=== PATIENT | male | born 1985 | race Caucasian/White ===

== ENCOUNTER 2023-03-25 21:08 | Outpatient (CLI) | payer OTHER, SELFPAY ==
[2023-03-25 18:14] LABS: Amphetamine/Metha Screen,Urine Negative ng/ml (<1000)
[2023-03-25 18:15] LABS: Barbiturates Screen,Urine Negative ng/ml (<200)
[2023-03-25 18:20] LABS: Benzodiazepines Screen,Urine Negative ng/ml (<200)
[2023-03-25 18:21] LABS: Cannabinoid Screen,Urine Negative ng/ml (<50); Cocaine Screen,Urine Negative ng/ml (<300)
[2023-03-25 18:22] LABS: Methadone Screen,Urine Negative ng/ml (<300)
[2023-03-25 18:23] LABS: Opiate Screen,Urine Negative ng/ml (<300); Phencyclidine Screen,Urine Negative ng/ml (<25)
== END 2023-03-25 23:59 ==
LOC: LAB.DROPOF 21:08
PROVIDERS: PCP Family Medicine; Visit Provider Family Medicine
DX: Z79.899 Other long term (current) drug therapy (principal)
CPT/HCPCS: 80307

== ENCOUNTER 2023-04-04 22:11 | Outpatient (CLI) | payer OTHER, SELFPAY ==
[2023-04-08 11:15] LABS: HSV 1 IgG, Type Spec <0.91
== END 2023-04-04 23:59 ==
LOC: LAB.DROPOF 22:12
PROVIDERS: PCP Family Medicine; Visit Provider Family Medicine
DX: L98.8 Other specified disorders of the skin and subcutaneous tissue (principal)
CPT/HCPCS: 86695; 86790